=== PATIENT | male | born 1985 | race African-American/Black ===

== ENCOUNTER 2023-04-19 13:08 | Emergency (ER) | payer MEDICAID ==
[~2023-04-19] VITALS: Ht 188 cm; Wt 81.0 kg
[2023-04-19 13:19] VITALS: BP 129/88; PULSE 103; RESP 20; TEMP 98.1; O2SAT 99
[2023-04-19 15:37] LABS: BASOPHILS % 0.7 % (0.0-2.0); DIFFERENTIAL COMMENT 0; EOSINOPHILS % 3.4 % (0.0-5.0); HEMOGLOBIN. 16.2 g/dL (14.0-18.0); LYMPHOCYTES % 25.2 % (20.0-50.0); MEAN CORPUSCULAR HEMOGLOBIN 25.4 pg (28.0-32.0); MEAN PLATELET VOLUME 10.2 fl (7.4-10.4); MONOCYTES % 11.7 % (2.0-8.0); PLATELET 218 x1000/uL (130-400); RED BLOOD CELL COUNT 6.36 mill/uL (4.7-6.1); RED CELL DISTRIBUTION WIDTH 15.1 % (11.6-14.6); WHITE BLOOD COUNT 8.3 x1000/uL (4.5-11.0)
[2023-04-19 15:51] LABS: ALANINE AMINOTRANSFERASE 44 IU/L (10-49); ALBUMIN 4.8 g/dL (3.2-4.8); ASPARTATE AMINOTRANSFERASE 45 IU/L (<34); BILIRUBIN TOTAL 1.3 mg/dL (0.1-1.0); CALCIUM 9.3 mg/dL (8.7-10.4); CARBON DIOXIDE 26 mEq/L (21-32); CHLORIDE 102 mEq/L (98-107); CREATININE 1.2 mg/dL (0.6-1.3); GLUCOSE 91 mg/dL (70-105); POTASSIUM 3.8 mEq/L (3.5-5.1); PROTEIN TOTAL 8.3 g/dL (6.0-8.3); SODIUM 135 mEq/L (136-145); T4 FREE 1.25 ng/dL (0.89-1.76); THYROID STIMULATING HORMONE 0.79 uIU/mL (0.55-4.78); UREA NITROGEN BLOOD 16 mg/dL (9-23)
[2023-04-19 15:52] LABS: TROPONIN I HIGH SENSITIVITY < 4 ng/L (3.0-53)
== END 2023-04-19 19:16 | disposition home or self-care (01) ==
LOC: ER 17:00
DX: F41.9 Anxiety disorder, unspecified (principal); F32.9 Major depressive disorder, single episode, unspecified; J45.909 Unspecified asthma, uncomplicated
CPT/HCPCS: 36415; 71045; 80053; 84439; 84443; 84484; 85025; 93005; 99285